=== PATIENT | male | born 1995 | race Two or more races ===

== ENCOUNTER 2016-12-24 21:22 | Emergency (ER) | payer MEDICAID, OTHER ==
[~2016-12-24] VITALS: Ht 180.3 cm; Wt 69.4 kg
[2016-12-24] MEDS ORDERED: LIDOCAINE 1%, 20ML INFIL ONE (22:00)
[2016-12-24] MEDS ORDERED: LIDOCAINE 1%, 20ML ONE (22:03)
[2016-12-24] MEDS ORDERED: BACITRACIN ZINC OINT 500U/GM, 0.9 GM ONE (23:01)
[2016-12-24 23:22] VITALS: BP 121/67
== END 2016-12-24 23:24 | disposition home or self-care (01) ==
LOC: ED 23:18
DX: S61.411A Laceration without foreign body of right hand, initial encounter (principal); G89.11 Acute pain due to trauma; Y04.0XXA Assault by unarmed brawl or fight, initial encounter
CPT/HCPCS: 12001; 73130; 99284; J3490

== ENCOUNTER 2017-01-22 10:39 | Emergency (ER) | payer OTHER ==
[~2017-01-22] VITALS: Ht 180.3 cm; Wt 71.3 kg
[2017-01-22 12:03] VITALS: BP 119/62
== END 2017-01-22 12:04 | disposition home or self-care (01) ==
LOC: ED 11:58
DX: S01.01XD Laceration without foreign body of scalp, subsequent encounter (principal)
CPT/HCPCS: 99281

== ENCOUNTER 2017-01-24 23:35 | Emergency (ER) | payer MEDICAID ==
[~2017-01-24] VITALS: Ht 180.3 cm; Wt 69.2 kg
[2017-01-24 23:37] VITALS: BP 137/82
== END 2017-01-25 00:01 | disposition left against medical advice (07) ==
LOC: ED 23:59
DX: Z53.21 Procedure and treatment not carried out due to patient leaving prior to being seen by health care provider (principal)

== ENCOUNTER 2017-01-25 00:32 | Emergency (ER) | payer MEDICAID ==
[~2017-01-25] VITALS: Ht 180.3 cm; Wt 69.0 kg
[2017-01-25 00:33] VITALS: BP 137/82
[2017-01-25] MEDS ORDERED: BACITRACIN ZINC OINT 500U/GM, 0.9 GM ONE (01:30)
== END 2017-01-25 01:38 | disposition home or self-care (01) ==
LOC: ED 00:55
DX: S01.112A Laceration without foreign body of left eyelid and periocular area, initial encounter (principal); W22.8XXA Striking against or struck by other objects, initial encounter; Y93.89 Activity, other specified; Y92.488 Other paved roadways as the place of occurrence of the external cause; Y99.8 Other external cause status
CPT/HCPCS: 99281

== ENCOUNTER 2019-06-07 10:26 | Emergency (ER) | payer MEDICAID ==
[~2019-06-07] VITALS: Ht 180.3 cm; Wt 72.3 kg
[2019-06-07 10:36] VITALS: BP 126/85
[2019-06-07 11:24] LABS: BASOPHILS # (AUTO) 0.06 x10^3/uL (0-0.1); BASOPHILS % (AUTO) 1 % (0-1); EOSINOPHILS # (AUTO) 0.15 x10^3/uL (0-0.4); EOSINOPHILS % (AUTO) 2 % (1-7); LYMPHOCYTES # (AUTO) 2.26 x10^3/uL (1-3.4); LYMPHOCYTES % (AUTO) 23 % (22-44); MD NO; MEAN CORPUSCULAR HEMOGLOBIN 32.7 pg (27.5-34.5); MEAN CORPUSCULAR HGB CONC 33.5 g/dL (33.2-36.2); MEAN CORPUSCULAR VOLUME 97.7 fL (81-97); MONOCYTES # (AUTO) 0.64 x10^3/uL (0.2-0.8); MONOCYTES % (AUTO) 7 % (2-9); NEUTROPHILS # (AUTO) 6.55 x10^3/uL (1.8-6.8); NEUTROPHILS % (AUTO) 68 % (42-75); PLATELET COUNT 267 x10^3/uL (130-400); RED BLOOD COUNT 4.55 x10^6/uL (4.38-5.82); RED CELL DISTRIBUTION WIDTH 15.5 % (9.4-14.8)
[2019-06-07 11:29] LABS: ANION GAP 7 mmol/L (5-15); CALCIUM 8.7 mg/dL (8.5-10.1); CHLORIDE 105 mmol/L (98-107); CREATININE 1.08 mg/dL (0.7-1.3)
[2019-06-07] MEDS ORDERED: CEFTRIAXONE 250 MG IM ONE (11:30)
[2019-06-07] MEDS ORDERED: AZITHROMYCIN 500 MG TABLET PO ONE (11:30)
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
[2019-06-07] MEDS ORDERED: ACETAMINOPHEN 500 MG TABLET ONE (12:27)
[2019-06-07] MEDS ORDERED: LIDOCAINE-MPF 1%, 2ML ONE (12:27)
[2019-06-07] MEDS ORDERED: AZITHROMYCIN 500 MG TABLET ONE (12:27)
[2019-06-07] MEDS ORDERED: CEFTRIAXONE 250 MG ONE (12:27)
[2019-06-07] MEDS ORDERED: ACETAMINOPHEN 500 MG TABLET PO ONE (12:30)
--- NOTE | 2019-06-07 12:48 | NUR ---
PT STATES UNABLE TO GIVE URINE. DOES NOT WANT TO WAIT UNTIL HE CAN. JUDY REGAN. DISCHARGE GIVEN
== END 2019-06-07 12:50 | disposition home or self-care (01) ==
LOC: ED 12:39
DX: N34.1 Nonspecific urethritis (principal)
CPT/HCPCS: 36415; 80048; 82040; 85025; 96372; 99283; J0696

== ENCOUNTER 2019-06-12 06:04 | Emergency (ER) | payer MEDICAID ==
--- NOTE | 2019-06-12 06:26 | NUR ---
SEARCH OF LOBBY FOUND TO PATIENT. NOT IN RESTROOM. NOT OUTSIDE.
--- NOTE | 2019-06-12 06:36 | NUR ---
[id number]
--- NOTE | 2019-06-12 07:20 | NUR ---
PT NOT IN LOBBY AT THIS TIME.
== END 2019-06-12 07:22 | disposition left against medical advice (07) ==
LOC: ED 07:16
DX: L29.9 Pruritus, unspecified (principal); Z53.21 Procedure and treatment not carried out due to patient leaving prior to being seen by health care provider

== ENCOUNTER 2019-07-25 21:31 | Emergency (ER) | payer MEDICAID ==
[~2019-07-25] VITALS: Ht 165.1 cm; Wt 71.8 kg
[2019-07-25 22:15] VITALS: BP 124/64
[2019-07-25] MEDS ORDERED: CEPHALEXIN 500 MG CAPSULE ONE (22:28)
[2019-07-25] MEDS ORDERED: SULFAMETH./TRIMETHOPRIM DS 800MG/160MG TABLET ONE (22:28)
[2019-07-25] MEDS ORDERED: DIPH,PERTUSS(ACELL),TET VAC/PF 0.5 ML IM-VACC ONE ×2 (22:28→22:30)
[2019-07-25] MEDS ORDERED: SULFAMETH./TRIMETHOPRIM DS 800MG/160MG TABLET PO ONE (22:30)
[2019-07-25] MEDS ORDERED: CEPHALEXIN 500 MG CAPSULE PO ONE (22:30)
== END 2019-07-25 22:45 | disposition home or self-care (01) ==
LOC: ED 22:28
DX: L03.114 Cellulitis of left upper limb (principal); L03.124 Acute lymphangitis of left upper limb; F11.10 Opioid abuse, uncomplicated; Z72.9 Problem related to lifestyle, unspecified; F17.210 Nicotine dependence, cigarettes, uncomplicated
CPT/HCPCS: 90471; 90715; 99283; 99406

== ENCOUNTER 2019-09-09 18:05 | Inpatient (IN) | payer MEDICAID ==
[~2019-09-09] VITALS: Ht 177.8 cm; Wt 68.3 kg
--- NOTE | 2019-09-09 18:41 | NUR ---
NO ANSWER FROM LOBBY TO RM
--- NOTE | 2019-09-09 20:00 | NUR ---
PT C/O LEFT ARM PAIN AND SWELLING S/P INJECTING "EVERYTHING" WHNE ASKES WHAT DRUGS HE USES. PT TO HAVE LABS AND X-RAY DONE.
[2019-09-09] MEDS ORDERED: SODIUM CHLORIDE FLUSH 10ML SYR IVF ONE (20:30)
[2019-09-09 20:44] LABS: BASOPHILS # (AUTO) 0.04 x10^3/uL (0-0.1); BASOPHILS % (AUTO) 0 % (0-1); EOSINOPHILS # (AUTO) 0.04 x10^3/uL (0-0.4); EOSINOPHILS % (AUTO) 0 % (1-7); LYMPHOCYTES # (AUTO) 1.68 x10^3/uL (1-3.4); LYMPHOCYTES % (AUTO) 14 % (22-44); MD NO; MEAN CORPUSCULAR HEMOGLOBIN 31.2 pg (27.5-34.5); MEAN CORPUSCULAR HGB CONC 32.9 g/dL (33.2-36.2); MEAN CORPUSCULAR VOLUME 94.7 fL (81-97); MEAN PLATELET VOLUME 7.9 fL (7.4-10.4); MONOCYTES # (AUTO) 1.05 x10^3/uL (0.2-0.8); MONOCYTES % (AUTO) 9 % (2-9); NEUTROPHILS # (AUTO) 9.34 x10^3/uL (1.8-6.8); NEUTROPHILS % (AUTO) 77 % (42-75); PLATELET COUNT 231 x10^3/uL (130-400); RED BLOOD COUNT 4.51 x10^6/uL (4.38-5.82); RED CELL DISTRIBUTION WIDTH 13.2 % (9.4-14.8)
[2019-09-09 20:53] LABS: ALBUMIN 3.2 g/dL (3.4-5.0); ANION GAP 4 mmol/L (5-15); CALCIUM 8.1 mg/dL (8.5-10.1); CHLORIDE 101 mmol/L (98-107); CREATININE 0.94 mg/dL (0.7-1.3)
--- NOTE | 2019-09-09 21:30 | NUR ---
PT TO BE ADMITTED. WAITING FOR ANTIBIOTICS ORDER.
[2019-09-09] MEDS ORDERED: PIPERACILLIN/TAZO/PMX 3.375GM 50 ML ONE (21:46)
[2019-09-09] MEDS ORDERED: ACETAMINOPHEN 325 MG TABLET ONE (21:46)
--- NOTE | 2019-09-09 21:53 | NUR ---
PT REPEATEDLY REMOVES PULSE OX AND BP CUFF. PT INSTRUCTED TO STAY IN ROOM.
[2019-09-09 21:58] LABS: HCT (SEDRATE) 42.7 % (39.2-51.8)
[2019-09-09] MEDS ORDERED: PIPERACILLIN/TAZO/PMX 3.375GM 50 ML IV ONE (22:00)
[2019-09-09] MEDS ORDERED: PHARMACOKINETIC CONSULTATION MC ONE (22:00)
[2019-09-09] MEDS ORDERED: VANCOMYCIN PER PHARMACY MC PRN ×2 (22:00→23:00)
[2019-09-09] MEDS ORDERED: ACETAMINOPHEN 325 MG TABLET PO ONE (22:00)
[2019-09-09] MEDS ORDERED: SODIUM CHLORIDE 0.9% 1,000ML IVBOLUS ONE (22:00)
[2019-09-09] MEDS ORDERED: VANCOMYCIN 1,800 MG in SODIUM CHLORIDE 0.9% 250 ML IV ONE (22:00)
--- NOTE | 2019-09-09 22:01 | NUR ---
REPORT TO ESTHER CASAS. WAITING FOR BLOOD CULTURES X 2 TO BE DRAWN BEFORE STARTING ANTIBIOTICS.
--- NOTE | 2019-09-09 22:03 | NUR ---
RECEIVED REPORT FROM PRISCA CASAS. ASSUMING CARE AT THIS TIME.
--- NOTE | 2019-09-09 22:35 | NUR ---
2 SETS OF BLOOD CULTURES DRAWN PRIOR TO ABX STARTED. HOSPITALIST AT BEDSIDE.
--- NOTE | 2019-09-09 22:40 | NUR ---
REPORT GIVEN TO EVERTON CASAS
--- NOTE | 2019-09-09 22:50 | NUR ---
PT TAKEN TO CT AND THEN TO ADMIT ROOM 338.
[2019-09-09] MEDS ORDERED: ONDANSETRON ODT 4 MG PO PRN (23:00)
[2019-09-09] MEDS ORDERED: POLYETHYLENE GLYCOL 17 GM PACKET PO PRN (23:00)
[2019-09-09] MEDS ORDERED: KETOROLAC 30 MG/1 ML IM PRN (23:00)
[2019-09-09] MEDS ORDERED: ACETAMINOPHEN 325 MG TABLET PO PRN (23:00)
[2019-09-09] MEDS ORDERED: BISACODYL 10 MG SUPP PR PRN (23:00)
[2019-09-09] MEDS: SODIUM CHLORIDE 0.9% 1,000 ML IV SCH (23:14)
[2019-09-09 23:21] VITALS: BP 119/67
[2019-09-09] MEDS ORDERED: PHARMACOKINETIC MONITORING MC PRN (23:30)
[2019-09-09] MEDS: HEPARIN 5,000 UNITS/ML, 1ML SQ SCH (23:41)
[2019-09-09] MEDS: NICOTINE 21 MG/24 HR PATCH.TD24 TD SCH (23:42)
[2019-09-10] VITALS: BP 130/78
[2019-09-10] MEDS ORDERED: OMNIPAQUE 350 MG/ML, 100ML BOTTLE ONE (04:54)
[2019-09-10] MEDS: PIPERACILLIN/TAZO/PMX 3.375GM 50 ML IV SCH ×4 (04:59→23:29)
[2019-09-10 05:59] LABS: AMPHETAMINE SCREEN, URINE Positive (Negative); BARBITURATE SCREEN, URINE Negative (Negative); BENZODIAZEPINE SCREEN, URINE Negative (Negative); CANNABINOID SCREEN, URINE Positive (Negative); COCAINE SCREEN, URINE Negative (Negative); METHADONE SCREEN, URINE Negative (Negative); OPIATE SCREEN, URINE Positive (Negative)
[2019-09-10 06:05] LABS: BASOPHILS # (AUTO) 0.04 x10^3/uL (0-0.1); BASOPHILS % (AUTO) 0 % (0-1); EOSINOPHILS # (AUTO) 0.08 x10^3/uL (0-0.4); EOSINOPHILS % (AUTO) 1 % (1-7); LYMPHOCYTES # (AUTO) 1.77 x10^3/uL (1-3.4); LYMPHOCYTES % (AUTO) 16 % (22-44); MD NO; MEAN CORPUSCULAR HEMOGLOBIN 31.4 pg (27.5-34.5); MEAN CORPUSCULAR HGB CONC 32.5 g/dL (33.2-36.2); MEAN CORPUSCULAR VOLUME 96.4 fL (81-97); MEAN PLATELET VOLUME 8.3 fL (7.4-10.4); MONOCYTES # (AUTO) 1.06 x10^3/uL (0.2-0.8); MONOCYTES % (AUTO) 9 % (2-9); NEUTROPHILS # (AUTO) 8.38 x10^3/uL (1.8-6.8); NEUTROPHILS % (AUTO) 74 % (42-75); PLATELET COUNT 210 x10^3/uL (130-400)
[2019-09-10 06:11] LABS: ANION GAP 6 mmol/L (5-15); CALCIUM 7.8 mg/dL (8.5-10.1); CHLORIDE 104 mmol/L (98-107); CREATININE 0.88 mg/dL (0.7-1.3)
[2019-09-10 07:40] VITALS: BP 121/81
[2019-09-10] MEDS: SENNA/DOCUSATE TABLET PO SCH (09:00)
[2019-09-10] MEDS: SODIUM CHLORIDE 0.9% 1,000 ML IV SCH ×2 (09:47→20:27)
[2019-09-10] MEDS: HEPARIN 5,000 UNITS/ML, 1ML SQ SCH ×2 (09:47→18:04)
[2019-09-10] MEDS: VANCOMYCIN 1,400 MG in SODIUM CHLORIDE 0.9% 250 ML IV SCH (12:44)
[2019-09-10 13:23] VITALS: BP 145/80
[2019-09-10] MEDS: NICOTINE 21 MG/24 HR PATCH.TD24 TD SCH (23:00)
[2019-09-11] MEDS: VANCOMYCIN 1,400 MG in SODIUM CHLORIDE 0.9% 250 ML IV SCH ×2 (00:33→12:48)
[2019-09-11] MEDS: HEPARIN 5,000 UNITS/ML, 1ML SQ SCH ×3 (01:56→18:11)
[2019-09-11] MEDS: SODIUM CHLORIDE 0.9% 1,000 ML IV SCH ×3 (05:29→22:52)
[2019-09-11] MEDS: PIPERACILLIN/TAZO/PMX 3.375GM 50 ML IV SCH ×3 (05:29→18:11)
[2019-09-11] MEDS: SENNA/DOCUSATE TABLET PO SCH (10:33)
[2019-09-11 13:16] LABS: ANION GAP 5 mmol/L (5-15); CALCIUM 8.3 mg/dL (8.5-10.1); CHLORIDE 99 mmol/L (98-107); CREATININE 0.87 mg/dL (0.7-1.3)
[2019-09-11 13:19] LABS: BASOPHILS % (AUTO) 0 % (0-1); EOSINOPHILS # (AUTO) 0.02 x10^3/uL (0-0.4); EOSINOPHILS % (AUTO) 0 % (1-7); LYMPHOCYTES # (AUTO) 0.96 x10^3/uL (1-3.4); LYMPHOCYTES % (AUTO) 9 % (22-44); MD NO; MEAN CORPUSCULAR HEMOGLOBIN 31.7 pg (27.5-34.5); MEAN CORPUSCULAR HGB CONC 33.1 g/dL (33.2-36.2); MEAN CORPUSCULAR VOLUME 95.8 fL (81-97); MONOCYTES # (AUTO) 0.76 x10^3/uL (0.2-0.8); MONOCYTES % (AUTO) 7 % (2-9); NEUTROPHILS # (AUTO) 9.22 x10^3/uL (1.8-6.8); NEUTROPHILS % (AUTO) 84 % (42-75); PLATELET COUNT 275 x10^3/uL (130-400); RED BLOOD COUNT 4.83 x10^6/uL (4.38-5.82); RED CELL DISTRIBUTION WIDTH 13.5 % (9.4-14.8)
[2019-09-11 13:20] LABS: HEMOGRAM NOTE RECHECKED
[2019-09-11 13:50] VITALS: BP 126/75
[2019-09-11 18:45] VITALS: BP 114/69
[2019-09-11] MEDS: NICOTINE 21 MG/24 HR PATCH.TD24 TD SCH (23:00)
[2019-09-12] MEDS: PIPERACILLIN/TAZO/PMX 3.375GM 50 ML IV SCH ×3 (00:25→09:55)
[2019-09-12] MEDS: VANCOMYCIN 1,400 MG in SODIUM CHLORIDE 0.9% 250 ML IV SCH (01:17)
[2019-09-12] MEDS: HEPARIN 5,000 UNITS/ML, 1ML SQ SCH ×2 (02:00→08:37)
[2019-09-12] MEDS: SENNA/DOCUSATE TABLET PO SCH (08:37)
[2019-09-12] MEDS: SODIUM CHLORIDE 0.9% 1,000 ML IV SCH (08:39)
[2019-09-12] MEDS ORDERED: VANCOMYCIN 1,400 MG in SODIUM CHLORIDE 0.9% 250 ML IV SCH (09:00)
== END 2019-09-12 10:06 | disposition left against medical advice (07) | DRG 872 ==
LOC: ED 20:57 → EDIP 22:25 → 3N 22:59
PROVIDERS: ADMIT Internal Medicine; ATTEND Family Medicine
DX: A41.9 Sepsis, unspecified organism (principal); E87.1 Hypo-osmolality and hyponatremia; L03.114 Cellulitis of left upper limb; F12.90 Cannabis use, unspecified, uncomplicated; F15.90 Other stimulant use, unspecified, uncomplicated; F17.200 Nicotine dependence, unspecified, uncomplicated; F19.10 Other psychoactive substance abuse, uncomplicated; Z53.29 Procedure and treatment not carried out because of patient's decision for other reasons; Z79.899 Other long term (current) drug therapy; Z88.8 Allergy status to other drugs, medicaments and biological substances
CPT/HCPCS: 36415; 80048; 80202; 80307; 82040; 83605; 84145; 85025; 85651; 86140; 87040; 96374; G0378; J1644; J2543; J3370; Q9967; J7030; J7050

== ENCOUNTER 2019-11-26 21:49 | Emergency (ER) | payer MEDICAID ==
[~2019-11-26] VITALS: Ht 180.3 cm; Wt 69.4 kg
--- NOTE | 2019-11-26 21:58 | NUR ---
NO ANSWER WHEN CALLED FOR TRIAGE
[2019-11-26 22:00] VITALS: BP 117/80
--- NOTE | 2019-11-26 22:19 | NUR ---
EVENTS ADMINISTRATIVE ASSISTANT: PT AMBULATORY TO ROOM WITH STEADY GAIT FROM [place] AT THIS TIME WITH TANK OFFICER
--- NOTE | 2019-11-26 22:28 | NUR ---
Pt states that he "did a bunch of drugs tonight. I did some crystal and shot up some heroin now I feel off. I don't know what to do. I don't feel right." Refuses to answer this RN's questions. Refuses lab work. Provider aware
--- NOTE | 2019-11-26 23:45 | NUR ---
Pt refuses VS. Agreeable to labwork per PA. Resting comfortably on stretcher. No s/sx acute distress
[2019-11-27 00:15] LABS: BASOPHILS # (AUTO) 0.03 x10^3/uL (0-0.1); BASOPHILS % (AUTO) 0 % (0-1); EOSINOPHILS # (AUTO) 0.14 x10^3/uL (0-0.4); EOSINOPHILS % (AUTO) 2 % (1-7); LYMPHOCYTES # (AUTO) 1.67 x10^3/uL (1-3.4); LYMPHOCYTES % (AUTO) 22 % (22-44); MD NO; MEAN CORPUSCULAR HEMOGLOBIN 31.4 pg (27.5-34.5); MEAN CORPUSCULAR HGB CONC 33.4 g/dL (33.2-36.2); MEAN CORPUSCULAR VOLUME 94.2 fL (81-97); MEAN PLATELET VOLUME 8.1 fL (7.4-10.4); MONOCYTES # (AUTO) 0.82 x10^3/uL (0.2-0.8); MONOCYTES % (AUTO) 11 % (2-9); NEUTROPHILS # (AUTO) 4.88 x10^3/uL (1.8-6.8); NEUTROPHILS % (AUTO) 65 % (42-75); PLATELET COUNT 253 x10^3/uL (130-400); RED BLOOD COUNT 5.28 x10^6/uL (4.38-5.82); RED CELL DISTRIBUTION WIDTH 14.9 % (9.4-14.8)
[2019-11-27 00:25] LABS: ALANINE AMINOTRANSFERASE 40 U/L (12-78); ALBUMIN 3.7 g/dL (3.4-5.0); ANION GAP 5 mmol/L (5-15); CALCIUM 9.5 mg/dL (8.5-10.1); CHLORIDE 107 mmol/L (98-107); CREATININE 0.98 mg/dL (0.7-1.3)
[2019-11-27 00:28] LABS: ALKALINE PHOSPHATASE 146 U/L (45-117); BILIRUBIN,TOTAL 0.3 mg/dL (0.2-1.0); TOTAL PROTEIN 7.6 g/dL (6.4-8.2)
--- NOTE | 2019-11-27 01:51 | NUR ---
Upon discussing d/c with pt, pt became unruly. Threatening staff. Stating he will not leave ED. Security at bedside for conversation. Pt threw DC paperwork towards this RN. Continues to state that he's not leaving. Denies pain. No s/sx acute distress. Refuses VS. Escorted out of ED by security
== END 2019-11-27 01:55 | disposition home or self-care (01) ==
LOC: ED 23:22
DX: R10.84 Generalized abdominal pain (principal); F15.10 Other stimulant abuse, uncomplicated; F11.10 Opioid abuse, uncomplicated; R19.7 Diarrhea, unspecified; R11.2 Nausea with vomiting, unspecified
CPT/HCPCS: 36415; 80053; 83690; 85025; 99283

== ENCOUNTER 2020-04-18 14:01 | Emergency (ER) | payer MEDICAID ==
[2020-04-18 14:07] VITALS: BP 125/67
[2020-04-18] MEDS ORDERED: SODIUM CHLORIDE FLUSH 10ML SYR IVF ONE (14:30)
[2020-04-18] MEDS ORDERED: DAPTOMYCIN 420 MG in SODIUM CHLORIDE 0.9% 100 ML IVPB SCH (14:30)
[2020-04-18] MEDS ORDERED: PLEASE ENTER WEIGHT MC SCH (15:00)
--- NOTE | 2020-04-18 15:02 | NUR ---
IV PLACED, LABS DRAWN WITH START INCLUDING BC X 1. DURING IV START, PT WITH MULTIPLE INAPPROPRIATE REQUESTS AND BECAME VERBALLY ABUSIVE TO THIS RN. PT MAKES SEVERAL STATEMENTS, "I'M GOING TO LEAVE". "I NEED TO GET TO MY GIRLFRIEND", "I CAN'T STAY WITHOUT TALKING TO MY GIRLFRIEND". PT STATES HE DOES NOT KNOW GIRLFRIEND'S NUMBER AND ASKS THIS RN TO "GO FIND HER ON [employer]", "I KNOW I'M HIGH, SO WHAT!" PT REDIRECTED TO POC AND NEED FOR TREATMENT. PT REFUSED LAB DRAW FOR 2ND BC. ERP INFORMED. TEACHING AGAIN OF POC AND NEED FOR TREATMENT WITH EMPHASIS ON RISKS OF LEAVING ER. PT STATES "TAKE THE IV OUT, I'M LEAVING". PT REFUSES TO SIGN AMA PAPERWORK. PT ADVISED TO RETURN TO ED FOR TREATMENT. PT AMBULATORY OUT OF DEPARTMENT. ERP AWARE AND QUALITATIVE FIELD COORDINATOR NOTIFIED.
[2020-04-18 15:03] LABS: BASOPHILS % (AUTO) 1 % (0-1); EOSINOPHILS % (AUTO) 0 % (1-7); LYMPHOCYTES % (AUTO) 12 % (22-44); MEAN CORPUSCULAR HEMOGLOBIN 30.4 pg (27.5-34.5); MEAN CORPUSCULAR HGB CONC 33.6 g/dL (33.2-36.2); MEAN PLATELET VOLUME 7.4 fL (7.4-10.4); MONOCYTES % (AUTO) 9 % (2-9); NEUTROPHILS % (AUTO) 78 % (42-75); PLATELET COUNT 207 x10^3/uL (130-400); RED BLOOD COUNT 4.23 x10^6/uL (4.38-5.82); RED CELL DISTRIBUTION WIDTH 13.6 % (9.4-14.8)
[2020-04-18 15:04] LABS: MD NO
[2020-04-18 15:15] LABS: ALANINE AMINOTRANSFERASE 34 U/L (12-78); ALBUMIN 3.1 g/dL (3.4-5.0); ANION GAP 8 mmol/L (5-15); CALCIUM 8.2 mg/dL (8.5-10.1); CHLORIDE 100 mmol/L (98-107); CREATININE 0.98 mg/dL (0.7-1.3)
[2020-04-18 15:16] LABS: HCT (SEDRATE) 38.3 % (39.2-51.8)
[2020-04-18 15:17] LABS: ALKALINE PHOSPHATASE 108 U/L (45-117); BILIRUBIN,TOTAL 0.5 mg/dL (0.2-1.0); TOTAL PROTEIN 7.1 g/dL (6.4-8.2)
--- NOTE | 2020-04-18 15:17 | NUR ---
IV D/C'D PRIOR TO PT LEAVING ED.
== END 2020-04-18 15:19 | disposition left against medical advice (07) ==
LOC: ED 14:30
DX: L03.113 Cellulitis of right upper limb (principal); L02.413 Cutaneous abscess of right upper limb; R00.0 Tachycardia, unspecified; F17.200 Nicotine dependence, unspecified, uncomplicated
CPT/HCPCS: 36415; 80053; 83605; 85025; 85651; 87040; 99283

== ENCOUNTER 2020-04-18 17:08 | Inpatient (IN) | payer MEDICAID ==
[~2020-04-18] VITALS: Ht 180.3 cm; Wt 74.9 kg
[2020-04-18] MEDS ORDERED: PIPERACILLIN/TAZO/PMX 3.375GM 50 ML ONE (17:56)
[2020-04-18] MEDS ORDERED: VANCOMYCIN PER PHARMACY MC PRN ×2 (18:00→20:00)
[2020-04-18] MEDS ORDERED: PIPERACILLIN/TAZO/PMX 3.375GM 50 ML IV ONE (18:00)
[2020-04-18] MEDS ORDERED: MORPHINE SULFATE 4 MG/ML, 1ML ONE ×2 (18:21→19:16)
[2020-04-18] MEDS ORDERED: VANCOMYCIN 1,500 MG in SODIUM CHLORIDE 0.9% 250 ML IV ONE (18:30)
[2020-04-18] MEDS ORDERED: MORPHINE SULFATE 4 MG/ML, 1ML IVPush ONE ×2 (18:30→19:30)
--- NOTE | 2020-04-18 18:48 | NUR ---
REPORT GIVEN TO JAS
--- NOTE | 2020-04-18 18:49 | NUR ---
REPORT RECIEVED FROM YESSENIA REGALADO
--- NOTE | 2020-04-18 19:05 | NUR ---
pt to ct scan
[2020-04-18] MEDS ORDERED: OMNIPAQUE 350 MG/ML, 100ML BOTTLE ONE (19:40)
--- NOTE | 2020-04-18 19:41 | NUR ---
pt back from ct scan, vanco drip started, and medicated for pain per emar. pt resting in [facility], no other needs at this time, monitors in place
[2020-04-18] MEDS ORDERED: SODIUM CHLORIDE 0.9% 1,000 ML IV SCH (20:00)
[2020-04-18] MEDS ORDERED: hydrALAzine 20 MG/ML, 1ML IVPush PRN (20:00)
[2020-04-18] MEDS ORDERED: ONDANSETRON ODT 4 MG PO PRN (20:00)
[2020-04-18] MEDS ORDERED: DOCUSATE 100 MG CAPSULE PO PRN (20:00)
[2020-04-18] MEDS ORDERED: BISACODYL 10 MG SUPP PR PRN (20:00)
[2020-04-18] MEDS ORDERED: ACETAMINOPHEN 325 MG TABLET PO PRN (20:00)
[2020-04-18] MEDS ORDERED: morphine SULFATE 10 MG/ML, 1ML IVPush PRN (20:00)
[2020-04-18] MEDS ORDERED: POLYETHYLENE GLYCOL 17 GM PACKET PO PRN (20:00)
[2020-04-18] MEDS ORDERED: ONDANSETRON 2MG/ML, 2ML IVPush PRN (20:00)
[2020-04-18] MEDS ORDERED: PROMETHAZINE 25 MG/ML, 1ML IM PRN (20:00)
--- NOTE | 2020-04-18 20:06 | NUR ---
Dana () - . States to call her when he is discharged.
--- NOTE | 2020-04-18 20:41 | NUR ---
report given to kevon martínez
[2020-04-18] MEDS ORDERED: PHARMACOKINETIC MONITORING MC PRN (21:30)
[2020-04-18 22:00] VITALS: BP 154/78
[2020-04-18] MEDS: OXYcodone IR 5MG TABLET PO PRN (22:54)
[2020-04-19] MEDS: AMPICILLIN/SULBACTAM 3 GM in SODIUM CHLORIDE 0.9% 100 ML IV SCH ×3 (00:34→11:20)
[2020-04-19] MEDS ORDERED: VANCOMYCIN 1,300 MG in SODIUM CHLORIDE 0.9% 250 ML IV SCH (03:00)
[2020-04-19] MEDS: OXYcodone IR 5MG TABLET PO PRN (05:51)
[2020-04-19] MEDS ORDERED: VANCOMYCIN 1,500 MG in SODIUM CHLORIDE 0.9% 250 ML IV SCH (12:00)
[2020-04-19] MEDS ORDERED: ENOXAPARIN 40 MG/0.4 ML SQ SCH (14:00)
[2020-04-19] MEDS ORDERED: ENOXAPARIN 40 MG/0.4 ML ONE (14:02)
[2020-04-19] MEDS ORDERED: BUPRENORPHINE/NALOXONE 2-0.5MG SL SCH (15:00)
== END 2020-04-19 14:20 | disposition left against medical advice (07) | DRG 872 ==
LOC: ED 18:03 → EDIP 18:04 → ED 18:19 → 3N 21:08
PROVIDERS: ADMIT Internal Medicine; ATTEND Family Medicine
DX: A41.9 Sepsis, unspecified organism (principal); L02.413 Cutaneous abscess of right upper limb; L03.113 Cellulitis of right upper limb; F10.10 Alcohol abuse, uncomplicated; F17.210 Nicotine dependence, cigarettes, uncomplicated; Z91.19 Patient's noncompliance with other medical treatment and regimen
CPT/HCPCS: 36415; 96374; 96375; 99285; J0572; 83605; 87040; 87070; 87205; G0378; J0295; J2405; J2543; J3370; Q9967; J2270; J7030; J7050

== ENCOUNTER 2020-05-11 23:15 | Emergency (ER) | payer MEDICAID ==
--- NOTE | 2020-05-11 23:30 | NUR ---
Called x3 to triage. Pt was in bathroom, security at door. Pt yelling he needs more time. Pt then left before being triaged.
== END 2020-05-11 23:31 ==
LOC: ED 23:20
DX: M79.602 Pain in left arm (principal); Z53.21 Procedure and treatment not carried out due to patient leaving prior to being seen by health care provider

== ENCOUNTER 2020-05-12 00:23 | Emergency (ER) | payer MEDICAID ==
[~2020-05-12] VITALS: Ht 180.3 cm; Wt 73.3 kg
--- NOTE | 2020-05-12 00:53 | NUR ---
CC OF ABSCESS FROM IV DRUG USE ON LEFT UPPER FOREARM. PT STATES NO PUS OR DRAINAGE FROM SITE, HAS BEEN THERE FOR 3 DAYS AND BECOME INCREASINGLY PAINFUL. PT ADMITS TO USING 15 MIN AGO IV HEROIN. PT FOUND TO BE RUMMAGING THROUGH CABINETS IN ROOM GRABBING TOWELS AND THROWING THEM IN HIS BAG ALONG WITH TURNING ON THE SINK TO USE WARM WATER AND USE TO MAKE WARM COMPRESS. PT TOLD NOT TO GO THROUGH SUPPLIES AND PT WAS GIVEN ICE BAG WITH WARM WATER FOR COMPRESS INSTEAD. PT ALSO REQUESTING TO USE PHONE, CONCERNED ABOUT WHEREABOUTS OF GF, BELIEVES SHE IS WITH A HEROIN DEALER. WANTS TO CALL FOR WELLCARE CHECK.
[2020-05-12] MEDS ORDERED: LIDOCAINE-MPF 1%, 5ML ONE (01:01)
[2020-05-12] MEDS ORDERED: SULFAMETH./TRIMETHOPRIM DS 800MG/160MG TABLET ONE (01:15)
[2020-05-12] MEDS ORDERED: CEPHALEXIN 500 MG CAPSULE ONE (01:15)
[2020-05-12] MEDS ORDERED: CEPHALEXIN 500 MG CAPSULE PO ONE (01:30)
[2020-05-12] MEDS ORDERED: LIDOCAINE 1%, 10ML INFIL ONE (01:30)
[2020-05-12] MEDS ORDERED: SULFAMETH./TRIMETHOPRIM DS 800MG/160MG TABLET PO ONE (01:30)
--- NOTE | 2020-05-12 01:32 | NUR ---
pt refuses tech to bandage arm. pt stated that he will do it himself. pt then uses rubbing alcohol on wound. advised pt to not use that. pt stated to tech "its my body fuck off." tech gave pt supplies for wound.
[2020-05-12 01:48] VITALS: BP 129/68
== END 2020-05-12 01:50 | disposition home or self-care (01) ==
LOC: ED 01:01
DX: L03.114 Cellulitis of left upper limb (principal); L02.414 Cutaneous abscess of left upper limb; F17.210 Nicotine dependence, cigarettes, uncomplicated
CPT/HCPCS: 10060; 99283; 99406